=== PATIENT | male | born 1985 ===

== ENCOUNTER → 2018-10-05 | Outpatient (CLI) | payer OTHER ==
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
== END | disposition home or self-care (01) ==
LOC: HKI 14:24
PROVIDERS: ATTEND Orthopaedic Surgery Adult Reconstructive Orthopaedic Surgery
DX: M76.9 Unspecified enthesopathy, lower limb, excluding foot (principal); M70.61 Trochanteric bursitis, right hip
CPT/HCPCS: G0463